=== PATIENT | female | born 2000 | race Hispanic/Latino ===

== ENCOUNTER 2021-02-10 02:12 | Emergency (ER) | payer BC, MEDICAID ==
[~2021-02-10] VITALS: Ht 160 cm; Wt 145.1 kg
[~2021-02-10 02:12] MED LIST: PREN-94 PO
[2021-02-10 02:14] VITALS: BP 132/74
[2021-02-10 03:13] VITALS: BP 136/78
[2021-02-10] MEDS ORDERED: IBUP-2076 PO (05:10)
[2021-02-10] MEDS ORDERED: SOLU-MEDROL 125MG VIAL IVP ONE (05:30)
== END 2021-02-10 05:43 | disposition home or self-care (01) ==
LOC: EDH 03:08
DX: S56.912A Strain of unspecified muscles, fascia and tendons at forearm level, left arm, initial encounter (principal); S63.502A Unspecified sprain of left wrist, initial encounter; W01.0XXA Fall on same level from slipping, tripping and stumbling without subsequent striking against object, initial encounter; Y93.89 Activity, other specified; Y92.89 Other specified places as the place of occurrence of the external cause; Y99.8 Other external cause status
CPT/HCPCS: 73070; 73100